=== PATIENT | female | born 1935 | race American Indian/Alaskan Native ===

== ENCOUNTER 2017-05-27 12:48 | Emergency (ER) | payer BC, OTHER ==
[~2017-05-27] VITALS: Ht 154.9 cm; Wt 71.2 kg
[2017-05-27] MEDS ORDERED: METFORMIN HCL500 MG PO (13:38)
[2017-05-27] MEDS ORDERED: ONGLYZA5 MG PO (13:39)
[2017-05-27] MEDS ORDERED: NORCO 5-325 TA1 EACH PO (13:39)
[2017-05-27] MEDS ORDERED: TENORMIN25 MG PO (13:40)
[2017-05-27] MEDS ORDERED: OMEPRAZOLE20 M1 PO (13:40)
[2017-05-27] MEDS ORDERED: FOLIC ACID1 MG PO (13:40)
[2017-05-27] MEDS ORDERED: COZAAR100 MG PO (13:40)
[2017-05-27] MEDS ORDERED: NORVASC2.5 MG PO (13:41)
== END 2017-05-27 16:13 | disposition home or self-care (01) ==
LOC: ED 12:48
DX: D64.9 Anemia, unspecified (principal); E11.9 Type 2 diabetes mellitus without complications; Z90.49 Acquired absence of other specified parts of digestive tract; Z90.710 Acquired absence of both cervix and uterus; Z88.1 Allergy status to other antibiotic agents; Z79.891 Long term (current) use of opiate analgesic; Z79.84 Long term (current) use of oral hypoglycemic drugs; Z79.899 Other long term (current) drug therapy
CPT/HCPCS: 85025; 99283

== ENCOUNTER 2018-11-13 17:44 | Inpatient (IN) | payer MEDICARE, BC, OTHER ==
[~2018-11-13] VITALS: Ht 154.9 cm; Wt 71.2 kg
[~2018-11-13 17:44] MED LIST: COZAAR100 MG PO; FOLIC ACID1 MG PO; METFORMIN HCL500 MG PO; NORCO 5-325 TA1 EACH PO; NORVASC2.5 MG PO; OMEPRAZOLE20 M1 PO; ONGLYZA5 MG PO; TENORMIN25 MG PO
[2018-11-13] MEDS ORDERED: K-TAB ER20 MEQ PO (19:17)
[2018-11-13] MEDS ORDERED: LASIX40 MG PO (19:18)
[2018-11-13] MEDS ORDERED: METOPROLOL TART25 MG PO (19:18)
[2018-11-13] MEDS ORDERED: LIPITOR10 MG (19:19)
[2018-11-13] MEDS ORDERED: RAMIPRIL1.25 MG PO (19:19)
[2018-11-13] MEDS ORDERED: PLAVIX75 MG PO (19:20)
[2018-11-13] MEDS ORDERED: LEXAPRO10 MG PO (19:20)
[2018-11-13] MEDS ORDERED: LIPITOR10 MG PO (19:20)
[2018-11-13] MEDS ORDERED: ASPIR-LOW81 MG PO (19:21)
[2018-11-13] MEDS ORDERED: PROCHLORPERAZIN10 MG PO (19:22)
[2018-11-13] MEDS ORDERED: PROPAFENONE HC150 MG PO (19:23)
[2018-11-13] MEDS ORDERED: PROTONIX40 MG PO (19:24)
[2018-11-13] MEDS ORDERED: CARAFATE1 GM PO (19:24)
[2018-11-13] MEDS ORDERED: DILTIAZEM 24HR180 M3 PO (19:24)
[2018-11-13] MEDS ORDERED: DOCUSATE SODIU100 MG PO (19:25)
[2018-11-13] MEDS ORDERED: GLIPIZIDE5 MG PO (19:25)
--- NOTE | 2018-11-13 21:45 | NUR ---
PATIENT ARRIVED TO ROOM 130 ON [facility]PITAL STRETCHER WITH JIGMAKER. PATIENT IS NOT IN DISTRESS, BREATHING IS EVEN AND UNLABORED, DENIES PAIN. TRANSFERED TO BED WITH ASSISTANCE FROM TWO RN. HEART RATE WNL, SINUS RHYTHM. BP LOW, INITIATED MAINTENANCE FLUIDS. PATIENT DENIES NEEDS AT THIS TIME. ASSESSMENT DONE, LUNGS ARE CLEAR O2 SATURATION >95% ON ROOM AIR. DENIES PAIN. PERIPHERAL PULSES WELL FELT, NO MOTTLING NOTED. CALL LIGHT WITHIN REACH.
--- NOTE | 2018-11-13 23:00 | NUR ---
PATIENT RESTFUL WITH EYES CLOSED, BREATHING IS UNLABORED, O2 SATURATION NOTED TO BE 88% WHILE ASLEEP, PLACED ON 2L O2. PATIENT DENIES NEEDS AT THIS TIME. CALL LIGHT WITHIN REACH, FAMILY AT BEDSIDE.
--- NOTE | 2018-11-14 00:28 | NUR ---
PATIENT UP TO BEDSIDE COMMODE, SBA, ABLE TO VOID URINE. NOW RESTING IN BED AGAIN, BREATHING IS EVEN AND UNLABAORED. O2 SATURATION IS 98% ON 2L O2. DENIES NEEDS AT THIS TIME. 500 ML BOLUS OF LR STARTED DUE TO BP OF 100/38 (55). CALL LIGHT WITHIN REACH.
--- NOTE | 2018-11-14 01:45 | NUR ---
NOTIFIED MD THAT PATIENT CONTINUES TO HAVE LOW BLOOD PRESSURE WITH SYSTOLIC PRESSURES <90 AND MAP <60 AFTER SECOND 500 ML LR BOLUS. MD ORDERS FOR 1L LR TO INFUSE OVER 4 HOURS, IF PATIENT IS NOT RESPONDING TO FLUIDS, PATIENT IS TO BE STARTED ON LEVOPHED GTT. PATIENT IS RESTFUL WITH EYES CLOSED, BREATHING IS EVEN AND UNLABORED, O2 SATURATION IS 98% ON 2L O2 VIA NC, TITRATED TO 1L. ALSO NOTIFIED MD THAT PATIENT'S URINE OUTPUT HAS BEEN QS AND THAT REPEAT LACTIC WAS 1.5.
--- NOTE | 2018-11-14 03:00 | NUR ---
PATIENT RESTING WITH EYES CLOSED, BREATHING IS EVEN AND UNLABORED, SPO2 92% ON ROOM AIR. IVF INFUSING. CALL LIGHT WITHIN REACH.
--- NOTE | 2018-11-14 05:25 | NUR ---
PATIENT UP TO BEDSIDE COMMODE, SBA. NOW RESTING IN BED AGAIN, BREATHING IS EVEN AND UNLABORED, DENIES FURTHER NEEDS. IVF INFUSING. CALL LIGHT WITHIN REACH.
--- NOTE | 2018-11-14 08:55 | NUR ---
IV SITES INTACT, PT DENIES PAIN AT EITHER SITE, FLUIDS AND FLUSHES INFUSE EASILY, NO REDNESS OR SWELLING NOTED AT EITHER SITE. PT ALERT AND ORIENTED X4, HOWEVER IS HARD OF HEARING. PT DENIES PAIN, NAUSEA, AND SOB. PT IS COOPERATIVE AND POLITE, ABLE TO REPOSITION SELF IN BED. PT HAS DAUGHTER AT THE BEDSIDE. VITALS WNL AT THIS TIME.
--- NOTE | 2018-11-14 14:34 | NUR ---
PT AMBULATED TO BATHROOM WITH ONE PERSON ASSISTANCE DUE TO ALL THE LINES. PT AMBULATES WELL. PT HAD MED BM AND VOIDED WELL. BACK TO BED. IV FLUIDS STOPED PER ORDERS AND IV SITE SALINE LOCKED. FLUSHED WITH 5ML NS.
[2018-11-14] MEDS ORDERED: LASIX40 MG PO (14:36)
[2018-11-14] MEDS ORDERED: ZYRTEC10 M3 PO (14:41)
[2018-11-14] MEDS ORDERED: MELATIN3 MG PO (14:42)
[2018-11-14] MEDS ORDERED: VITAMIN B-121000 MCG PO (14:43)
[2018-11-14] MEDS ORDERED: FERROUS SULFAT325 MG PO (14:44)
[2018-11-14] MEDS ORDERED: VITAMIN D250000 UNIT PO (14:45)
[2018-11-14] MEDS ORDERED: CALCIUM500 M1 PO (14:46)
[2018-11-14] MEDS ORDERED: PROTONIX40 MG PO (14:47)
[2018-11-14] MEDS ORDERED: MULTI VITAMIN1 EACH PO (14:51)
--- NOTE | 2018-11-14 14:52 | NUR ---
MED REC COMPLETE WITH PATIENT RECORDS FROM [facility].
--- NOTE | 2018-11-14 15:00 | NUR ---
PT TRANSPORTED TO MED/SURG FLOOR IN BED. FULL REPORT GIVEN TO LAURENT GARNER. ALL PERSONAL BELONGINGS WENT WITH PT TO ROOM 107. ALL QUESTIONS ANSWERED.
--- NOTE | 2018-11-14 15:20 | NUR ---
NEW ADMIT AT THIS TIME. PT AWAKE, ALERT AND ORIENTED X3. PT DENIES PAIN AT THIS TIME. ON RA, RESP EVEN AND NON LABORED. VS STABLE. PT ORIENTED TO ROOM AND CALL LIGHT. PERSONAL SUPPLIES AND CALL LIGHT WITHIN REACH.
--- NOTE | 2018-11-14 16:46 | NUR ---
PT'S BLOOD SUGAR 68, PT IS ALERT AND ORIENTED. PT GIVEN ORANGE JUICE AND TONE CRACKERS. PT'S RN NOTIFIED. DINNER ORDERED.
--- NOTE | 2018-11-14 17:23 | NUR ---
BLOOD SUGAR CHECKED AND INCREASED TO 80. ANOTHER SNACK PROVIDED. WILL RECHECK BS AGAIN PER PROTOCOL AFTER SNACK. PT DENIES S/S OF HYPOGLYCEMIA.
--- NOTE | 2018-11-14 17:46 | NUR ---
SPOKE WITH PATIENT IN ROOM. DAUGHTER AND GRANDDAUGHTERS ALSO THERE. PATIENT LIVES WITH DAUGHTER SAMIRA. PATIENT CAN DRIVE BUT STATES SHE LETS THE "KIDS DRIVE ME". PATIENT SEES PCP AT [facility], USES [facility] FOR MEDICATIONS OR [facility]. HOME HAS STAIRS, BUT PATIENTS ROOM AND LIVING AREAS ARE ON GROUND FLOOR. PATIENT USES NO AMBULATION ASSIST DEVICES. PATIENT INTENDS TO RETURN HOME AT DISCHARGE. WILL FOLLOW NEEDED.
--- NOTE | 2018-11-14 17:53 | NUR ---
DR. SELF NOTIFIED OF RECENT DECREASED AND INCREASED BLOOD SUGAR LEVELS. NO NEW ORDERS. SEE MAR FOR MORE INFOR. INITIAL BS OF 68, THEN POST SNACK 80, AND AGAIN POST SNACK 112. PT EATING DINNER AT THIS TIME AND TOLERATING WELL. NO NEEDS FROM PT.
--- NOTE | 2018-11-14 18:26 | NUR ---
PATIENT IN BED WATCHINT TV. FAMILY IN ROOM. VITAL SIGNS AND I&O DONE. CALL LIGHT WITHIN REACH. NO OTHER NEEDS AT THIS TIME
--- NOTE | 2018-11-14 20:30 | NUR ---
PATIENT OUT AMBULATING AROUND THE UNIT WITH FAMILY AT THIS TIME.
--- NOTE | 2018-11-14 20:53 | NUR ---
Charge nurse rounding note:, up to br, voided, back to bed, tolerated well, on room air, no c/o pain or sob. SL intact Family in room
--- NOTE | 2018-11-14 22:06 | EKG ---
[facility] [address] [place], [place] [address] Signed Sinus rhythm with premature atrial complexes Nonspecific ST and T wave abnormality Abnormal ECG No previous ECGs available Confirmed by MADDIE SELF DO ([id number]) on 11/14/2018 10:06:43 PM Electronically Signed By: MADDIE SELF DO 11/14/18 2206 PATIENT NAME: MANUELITO RODRIGUEZ Electrocardiogram DATE OF : 37 PHYSICIAN: MADDIE SELF DO REPORT #: [id number] REPORT IS CONFIDENTIAL AND NOT TO BE RELEASED WITHOUT AUTHORIZATION
--- NOTE | 2018-11-14 22:30 | NUR ---
PATIENT ASSESSMENT COMPLETE AND PM MEDS GIVEN. PATIENT DENIES PAIN. WATER GLASS FULL. WATCHING TV WITH FAMILY MEMBER.
--- NOTE | 2018-11-15 00:30 | NUR ---
PATIENT RESTING,BUT STILL AWAKE HAS BEEN AMBULATING TO THE BATHROOM AD ANDREAS. STILL VISITING WITH FAMILY MEMBER AT BEDSIDE. PATIENT REMAINS PAIN FREE.
--- NOTE | 2018-11-15 02:30 | NUR ---
PATIENT RESTING QUIETLY, EYES CLOSED, RESPIRATIONS REGULAR AND EVEN AT A RATE OF 16. CALL LIGHT IN REACH AND NO S/S OF DISTRESS.
--- NOTE | 2018-11-15 03:32 | NUR ---
PT ASSISTED TO BSC AND BACK TO BED WITH SBA. PT TOLERATED WELL. DENIES FURTHER NEEDS AT THIS TIME. PT'S DAUGHTER SLEEPING ON COUCH AT BEDSIDE. PT CALL LIGHT WITHIN REACH.
--- NOTE | 2018-11-15 03:51 | NUR ---
PATIENT CALLED AND WAS CONCERNED BECAUSE NO ANTIBIOTICS WERE RUNNING. PATIENT INFORMED THE NEXT ANTIBIOTICS ARE DUE AY 6AM.
--- NOTE | 2018-11-15 04:02 | NUR ---
PATIENT HAS BEEN RESTTING WAS UP TWICE DURING THE NIGHT TO USE THE REST ROOM 1 P STAND BY ASSIST, FRSH WATER GIVEN AND CALL LIGHT IN REACH. DAUGHTER IS IN THE ROOM WITH PATIENT.
--- NOTE | 2018-11-15 04:43 | NUR ---
PATIENT RESTING QUIETLY RIGHT SIDE, EYES CLOSED, RESPIRATIONS REGULAR AND EVEN AT A RATE 16BPM. NO S/S OF DISTRESS. CALLLIGHT IN REACH.
--- NOTE | 2018-11-15 06:35 | NUR ---
PATIENT RESTING QUIETLY ON HER LEFT SIDE RESPIRATIONS REGLAR AND EVEN AT A RATE OF 16BPM. BOTH IV PATENT AND WNL, LUNGS CLEAR, AND BOWEL TONES ACTIVE. PATIENT HAS HAD NO C/O NAUSEA OR PAIN. GOT UP AND WALKED THE UNIT WITH FAMILY IN THE EARLY EVENING.PATIENT HAS DONE WELL ALL NIGHT AND A FAMILY MEMBER HAS REMAINED AT BEDSIDE ALL NIGHT.
--- NOTE | 2018-11-15 07:00 | NUR ---
BEDSIDE HANDOFF REPORT RECEIVED FROM STAFF PSYCHOLOGIST RN. PT SLEEPING, LEFT UNDISTURBED. IV ABX INFUSING.
== END 2018-11-15 10:50 | disposition home or self-care (01) | DRG 872 ==
LOC: ED 17:44 → MS 21:25 → ED 21:25 → CCU 21:25 → MS 11-14 15:20
PROVIDERS: ADMIT Student in an Organized Health Care Education/Training Program
DX: A41.51 Sepsis due to Escherichia coli [E. coli] (principal); N39.0 Urinary tract infection, site not specified; N17.9 Acute kidney failure, unspecified; R65.20 Severe sepsis without septic shock; I25.10 Atherosclerotic heart disease of native coronary artery without angina pectoris; I48.0 Paroxysmal atrial fibrillation; E11.9 Type 2 diabetes mellitus without complications; E78.2 Mixed hyperlipidemia; I10 Essential (primary) hypertension; Z87.440 Personal history of urinary (tract) infections; Z88.1 Allergy status to other antibiotic agents; Z88.8 Allergy status to other drugs, medicaments and biological substances; Z79.84 Long term (current) use of oral hypoglycemic drugs; Z95.5 Presence of coronary angioplasty implant and graft; Z79.02 Long term (current) use of antithrombotics/antiplatelets; Z79.82 Long term (current) use of aspirin; Z79.899 Other long term (current) drug therapy
CPT/HCPCS: 36415; 51701; 71045; 80048; 80053; 81001; 83540; 83605; 83735; 83880; 84466; 85025; 87040; 87088; 87502; 93005; 93010; 96374; 96375; 97116; 97161; 99284-25; J0696; J1650; J2543; J3475; J7030; J7060; J7120

== ENCOUNTER 2019-01-30 12:44 | Emergency (ER) | payer BC, OTHER ==
[~2019-01-30] VITALS: Ht 154.9 cm; Wt 71.2 kg
--- OUTSIDE RECORDS SUMMARY | ~2019-01-30 | XMS | Clinical Summary ---
Demographics + + + | Address | [address] | | | [place] [address] | + + + | Home Phone | | + + + | Preferred Language | Unknown | + + + | Marital Status | Single | + + + | Roman Catholic Affiliation | Unknown | + + + | Race | Unknown | + + + | Ethnic Group | Unknown | + + + Author + + + | Author | [facility] | + + + | Organization | [facility] | + + + | Address | Unknown | + + + | Phone | Unavailable | + + + Support + + +---------+ + | Name | Relationship | Address | Phone | + + +---------+ + | Angel Cortes | ECON | Unknown | | + + +---------+ + Care Team Providers + +------+ + | Care Director Of Collections Name | Role | Phone | + +------+ + | Skyler Hannah | PP | | + +------+ + Allergies Not on File Current Medications Not on file Active Problems Not on file Encounters +--------+ + + + + | Date | Type | Specialty | Care Team | Description | +--------+ + + + + | 01/01/ | Documentati | | Anuja Vasquez DO | | | 2019 | on Only | | | | +--------+ + + + + from Last 3 Months Social History + +-------+ +--------+------+ | Tobacco Use | Types | Packs/Day | Years | Date | | | | | Used | | + +-------+ +--------+------+ | Never Assessed | | | | | + +-------+ +--------+------+ + + + | Sex Assigned at | Date Recorded | | | | + + + | Not on file | | + + + Plan of Treatment +--------+ + + + + | Date | Type | Specialty | Care Team | Description | +--------+ + + + + | 03/10/ | Initial | | Anuja Vasquez DO | | | 2019 | consult | | [address] | | | | | | [place] | | | | | | [address] | | | | | | | | +--------+ + + + + + + + + + | Health Maintenance | Due Date | Last Done | Comments | + + + + + | Vaccine: | | | | | Dtap/Tdap/Td (1 - | 5 | | | | Tdap) | | | | + + + + + | Vaccine: Zoster (1 | | | | | of 2) | 6 | | | + + + + + | DEXA SCAN SCREENING | | | | | | 1 | | | + + + + + | Vaccine: | | | | | Pneumococcal 65+ | 1 | | | | Low/Medium Risk (1 | | | | | of 2 - PCV13) | | | | + + + + + | Vaccine: Influenza | | | | | (#1) | 8 | | | + + + + + Results Not on filefrom Last 3 Months Insurance + +--------+ +------+-------+ + | Payer | Benefi | Subscriber | Type | Phone | Address | | | t Plan | ID | | | | | | / | | | | | | | Group | | | | | + +--------+ +------+-------+ + | PREMERA | PREMER | [id number] | | | [address] [address] | | | A BLUE | | | | [place], [place] | | | [place] | | | | [phone] | | | FED | | | | | | | PPO | | | | | + +--------+ +------+-------+ + | MEDICARE | MEDICA | [id number] | | | [address] | | | RE | | | | [place] [phone] | | | PART A | | | | | | | ONLY | | | | | + +--------+ +------+-------+ + + +--------+ +--------+ + + | Guarantor Name | Accoun | Relation to | Date | Phone | Billing Address | | | t Type | Patient | of | | | | | | | | | | + +--------+ +--------+ + + | MANUELITO RODRIGUEZ | Person | Self | [birth year] | Home: | [address] | | | al/Fam | | 1935 | [phone] | [place] [address] | | | [place] | | | [address] | | + +--------+ +--------+ + +"
--- OUTSIDE RECORDS SUMMARY | ~2019-01-30 | XMS | Encounter Summary ---
Demographics + + + | Address | [address] | | | [place] [address] | + + + | Home Phone | | + + + | Preferred Language | Unknown | + + + | Marital Status | Single | + + + | Methodist Affiliation | Unknown | + + + | Race | Unknown | + + + | Ethnic Group | Unknown | + + + Author + + + | Author | [facility] | + + + | Organization | [facility] [employer] [facility] | + + + | Address | Unknown | + + + | Phone | Unavailable | + + + Support + + +---------+ + | Name | Relationship | Address | Phone | + + +---------+ + | Angel Cortes | ECON | Unknown | | + + +---------+ + Care Team Providers + +------+ + | Care Php Lamp Developer Name | Role | Phone | + +------+ + | BrielleSkyler | PCP | | + +------+ + Encounter Details +--------+ + + + + | Date | Type | Department | Care Team | Description | +--------+ + + + + | 01/01/ | Documentati | [facility] | Anuja Vasquez DO | | | 2019 | on Only | [facility] | [address] | | | | | [address] | [place], [place] | | | | | [place], [place] | [address] | | | | | [address] | | | | | | [phone] | | | +--------+ + + + + Social History + +-------+ +--------+------+ | Tobacco [...] on file | | + + + as of this encounter Plan of Treatment +--------+ + + + + | Date | Type | Specialty | Care Team | Description | +--------+ + + + + | 03/10/ | Initial | Cardiology | Anuja Vasquez DO | | | 2019 | consult | | [address] | | | | | | [place] | | | | | | [address] | | | | | | | | +--------+ + + + + as of this encounter Visit Diagnoses Not on filein this encounter"
--- OUTSIDE RECORDS SUMMARY | ~2019-01-30 | XMS | Clinical Summary ---
Demographics + + + | Address | [facility] [address] | | | [place] [address] | + + + | Home Phone | | + + + | Preferred Language | Unknown | + + + | Marital Status | Single | + + + | Pentecostal Affiliation | Unknown | + + + | Race | Unknown | + + + | Ethnic Group | Unknown | + + + Author + + + | Author | [facility] | + + + | Organization | [facility] | + + + | Address | Unknown | + + + | Phone | Unavailable | + + + Support + + +---------+ + | Name | Relationship | Address | Phone | + + +---------+ + | Angel Cortes | ECON | Unknown | | + + +---------+ + Care Team Providers + +------+ + | Care Drug Safety Assistant Name | Role | Phone | + [...] [place] | | | | | | [address] | | | | | | | [...] +------+-------+ + | PREMERA | PREMER | [id number] | | | [address] [address] | | | A BLUE | | | | [place], [place] | | | [place] | | | | [address] | | | FED | | | | | | | PPO | | | | | + +--------+ +------+-------+ + | MEDICARE | MEDICA | [id number] | | | [address] | | | RE | | | | [place] [phone] | | | PART A | | [...] | | al/Fam | | 1935 | [phone] | [place] [address] | | | [place] | | | [address] | | + +--------+ +--------+ + +"
--- OUTSIDE RECORDS SUMMARY | ~2019-01-30 | XMS | Encounter Summary ---
Demographics + + + | Address | [address] | | | [place] [address] | + + + | Home Phone | | + + + | Preferred Language | Unknown | + + + | Marital Status | Single | + + + | Temple Affiliation | Unknown | + + + | Race | Unknown | + + + | Ethnic Group | Unknown | + + + Author + + + | Author | [facility] | + + + | Organization | [facility] | + + + | Address | Unknown | + + + | Phone | Unavailable | + + + Support + + +---------+ + | Name | Relationship | Address | Phone | + + +---------+ + | Angel Cortes | ECON | Unknown | | + + +---------+ + Care Team Providers + +------+ + | Care Mail Messenger Contractor Name | Role | Phone | + [...] | [address] | [place], [place] | | | | | [place], [place] | [address] | | | | | [address] | | | | | | [phone] | | | +--------+ + + + [...] [place] | | | | | | [address] | | | | | | | | +--------+ + + + + as of this encounter Visit Diagnoses Not on filein this encounter"
[~2019-01-30 12:44] MED LIST changes: +ASPIR-LOW81 MG PO; +CALCIUM500 M1 PO; +CARAFATE1 GM PO; +DILTIAZEM 24HR180 M3 PO; +DOCUSATE SODIU100 MG PO; +FERROUS SULFAT325 MG PO; +GLIPIZIDE5 MG PO; +K-TAB ER20 MEQ PO; +LASIX40 MG PO; +LEXAPRO10 MG PO; +LIPITOR10 MG; +LIPITOR10 MG PO; +MELATIN3 MG PO; +METOPROLOL TART25 MG PO; +MULTI VITAMIN1 EACH PO; +PLAVIX75 MG PO; +PROCHLORPERAZIN10 MG PO; +PROPAFENONE HC150 MG PO; +PROTONIX40 MG PO; +RAMIPRIL1.25 MG PO; +VITAMIN B-121000 MCG PO; +VITAMIN D250000 UNIT PO; +ZYRTEC10 M3 PO
--- NOTE | 2019-01-30 18:26 | EKG ---
[facility] [address] [place] [address] Signed Normal sinus rhythm Normal ECG When compared with ECG of 13-NOV-2018 19:01, premature atrial complexes are no longer present Nonspecific T wave abnormality no longer evident in Anterior leads Confirmed by JOLENE KNAPP MD ([id number]) on 01/30/2019 6:26:28 PM Electronically Signed By: JOLENE KNAPP MD 01/30/19 1826 PATIENT NAME: MANUELITO RODRIGUEZ Electrocardiogram DATE OF : 37 PHYSICIAN: JOLENE KNAPP MD REPORT #: [id number] REPORT IS CONFIDENTIAL AND NOT TO BE RELEASED WITHOUT AUTHORIZATION
== END 2019-01-30 16:10 | disposition home or self-care (01) ==
LOC: ED 12:44
DX: R55 Syncope and collapse (principal); K59.00 Constipation, unspecified; D64.9 Anemia, unspecified; E11.9 Type 2 diabetes mellitus without complications; Z90.49 Acquired absence of other specified parts of digestive tract; Z90.710 Acquired absence of both cervix and uterus; Z95.5 Presence of coronary angioplasty implant and graft; Z88.1 Allergy status to other antibiotic agents; Z88.4 Allergy status to anesthetic agent; Z79.899 Other long term (current) drug therapy; Z79.82 Long term (current) use of aspirin; Z79.84 Long term (current) use of oral hypoglycemic drugs
CPT/HCPCS: 71045; 80053; 84484; 85025; 93005; 93010; 99284-25

== ENCOUNTER 2019-05-02 18:13 | Emergency (ER) | payer BC, OTHER ==
[~2019-05-02] VITALS: Ht 154.9 cm; Wt 71.2 kg
[2019-05-02] MEDS ORDERED: ZESTRIL5 MG PO (18:29)
[2019-05-02] MEDS ORDERED: KEFLEX500 MG PO (18:30)
[2019-05-02] MEDS ORDERED: LIPITOR10 MG PO (18:32)
[2019-05-02] MEDS ORDERED: MIRALAX17 GM PO (18:32)
[2019-05-02] MEDS ORDERED: CLARITIN10 M2 PO (18:33)
--- NOTE | 2019-05-03 15:08 | EKG ---
[facility] [address] [place], [place] [address] Signed Sinus tachycardia Otherwise normal ECG When compared with ECG of 30-JAN-2019 13:09, No significant change was found Confirmed by JOLENE KNAPP MD ([id number]) on 05/03/2019 3:07:50 PM Electronically Signed By: JOLENE KNAPP MD 05/03/19 1508 PATIENT NAME: MANUELITO RODRIGUEZ Electrocardiogram DATE OF : 37 PHYSICIAN: JOLENE KNAPP MD REPORT #: [id number] REPORT IS CONFIDENTIAL AND NOT TO BE RELEASED WITHOUT AUTHORIZATION
== END 2019-05-02 22:22 | disposition home or self-care (01) ==
LOC: ED 18:13
DX: J20.8 Acute bronchitis due to other specified organisms (principal); E11.9 Type 2 diabetes mellitus without complications; Z90.49 Acquired absence of other specified parts of digestive tract; Z90.710 Acquired absence of both cervix and uterus; Z88.1 Allergy status to other antibiotic agents; Z88.4 Allergy status to anesthetic agent; Z79.82 Long term (current) use of aspirin; Z79.899 Other long term (current) drug therapy
CPT/HCPCS: 36415; 71046; 80053; 81001; 85025; 94640; 94664; 99284-25

== ENCOUNTER 2019-05-13 22:22 | Emergency (ER) | payer BC, OTHER ==
[~2019-05-13] VITALS: Ht 154.9 cm; Wt 71.2 kg
[~2019-05-13 22:22] MED LIST changes: +CLARITIN10 M2 PO; +KEFLEX500 MG PO; +MIRALAX17 GM PO; +ZESTRIL5 MG PO
--- OUTSIDE RECORDS SUMMARY | 2019-05-13 22:24 | XMS ---
PreManage Notification: MANUELITO RODRIGUEZ Security Cluster Bore Operator Events No recent Security Events currently on file CRITERIA MET - [facility] - 2 Visits in 30 Days CARE PROVIDERS There are no care providers on record at this time. Brii has no Care Guidelines for this patient. [place] VISIT COUNT (12 MO.) 4 [facility] [place] [facility]. TOTAL 4 NOTE: Visits indicate total known visits. ED/UCC VISIT TRACKING (12 MO.) 05/13/2019 22:[address] [facility] [place] TYPE: Emergency COMPLAINT: - POSS UTI 05/02/2019 18:13 [facility] [place] TYPE: Emergency COMPLAINT: - DIZZINESS DIAGNOSES: - Type 2 diabetes mellitus without complications - Acquired absence of both cervix and uterus - Acute bronchitis due to other specified organisms - Acquired absence of other specified parts of digestive tract - Other technician terminal and repeater (current) drug therapy - Cough - Allergy status to other antibiotic agents status - termite treater helper (current) use of aspirin - Allergy status to anesthetic agent status 01/30/2019 12:44 [facility] [place] TYPE: Emergency COMPLAINT: - ALT LOC DIAGNOSES: - Anemia, unspecified - skilled nursing (current) use of aspirin - Type 2 diabetes mellitus without complications - Constipation, unspecified - Presence of coronary angioplasty implant and graft - Acquired absence of both cervix and uterus - Allergy status to anesthetic agent status - termite treater helper (current) use of oral hypoglycemic drugs - Allergy status to other antibiotic agents status - Acquired absence of other specified parts of digestive tract - Syncope and collapse - Other custodial (current) drug therapy 11/13/2018 17:45 [facility] [place] TYPE: Emergency COMPLAINT: - UTI INPATIENT VISIT TRACKING (12 MO.) 11/13/2018 21:[address] [facility] [place] TYPE: [facility] COMPLAINT: - UTI DIAGNOSES: - Other technician terminal and repeater (current) drug therapy - Acute kidney failure, unspecified - Sepsis, unspecified organism - termite treater helper (current) use of antithrombotics/antiplatelets - Personal history of urinary (tract) infections - Urinary tract infection, site not specified - Atherosclerotic heart disease of [place] coronary artery without angina pectoris - Paroxysmal atrial fibrillation - Essential (primary) hypertension - Mixed hyperlipidemia - termite treater helper (current) use of oral hypoglycemic drugs - termite treater helper (current) use of aspirin - Presence of coronary angioplasty implant and graft - Allergy status to other antibiotic agents status - Severe sepsis without septic shock - Type 2 diabetes mellitus without complications - Sepsis due to Escherichia coli [E. coli] - Allergy status to other drugs, medicaments and biological substances status [email or web address]
[2019-05-14] MEDS ORDERED: BACTRIM DS TAB1 EACH PO (02:54)
[2019-05-14] MEDS ORDERED: NORCO 5-325 TA1 EACH PO (02:54)
[2019-05-14] MEDS ORDERED: FLAGYL500 MG PO (02:54)
== END 2019-05-14 03:11 | disposition home or self-care (01) ==
LOC: ED 22:22
DX: K57.32 Diverticulitis of large intestine without perforation or abscess without bleeding (principal); D64.9 Anemia, unspecified; E11.9 Type 2 diabetes mellitus without complications; Z88.1 Allergy status to other antibiotic agents; Z88.8 Allergy status to other drugs, medicaments and biological substances; Z79.899 Other long term (current) drug therapy; Z79.82 Long term (current) use of aspirin
CPT/HCPCS: 74177; 80053; 81001; 83690; 85025; 99284-25; Q9967